=== PATIENT | male | born 1990 | race Two or more races ===

== ENCOUNTER 2020-11-18 21:02 | Emergency (ER) | payer SELFPAY ==
[~2020-11-18] VITALS: Ht 167.6 cm; Wt 75.0 kg
[2020-11-18 21:57] VITALS: BP 135/88
== END 2020-11-18 23:06 | disposition home or self-care (01) ==
LOC: ER 21:02
DX: S63.682A Other sprain of left thumb, initial encounter (principal); X58.XXXA Exposure to other specified factors, initial encounter; Y93.89 Activity, other specified; Y92.89 Other specified places as the place of occurrence of the external cause; Y99.8 Other external cause status
CPT/HCPCS: 29125; 73110; 73130; 99284

== ENCOUNTER 2020-12-19 07:39 | Emergency (ER) | payer OTHER ==
[~2020-12-19] VITALS: Ht 170.2 cm; Wt 68.0 kg
[2020-12-19 07:59] VITALS: BP 128/81
[2020-12-19] MEDS ORDERED: IBUPROFEN 400MG TABLET PO ONE (08:45)
== END 2020-12-19 10:05 | disposition home or self-care (01) ==
LOC: ER 07:39
DX: S63.591A Other specified sprain of right wrist, initial encounter (principal); V00.131A Fall from skateboard, initial encounter; Y93.51 Activity, roller skating (inline) and skateboarding; Y92.488 Other paved roadways as the place of occurrence of the external cause; R03.0 Elevated blood-pressure reading, without diagnosis of hypertension
CPT/HCPCS: 29125; 73110; 99283